=== PATIENT | female | born 1995 | race Caucasian/White ===

== ENCOUNTER 2021-07-21 10:21 | Emergency (ER) | payer OTHER ==
[2021-07-21] MEDS ORDERED: BACITRACIN ZINC OINT 1 PACKET TOP STA (11:29)
--- NOTE | 2021-07-21 11:31 | ED Physician Documentation ---
History of Present Illness - Stated complaint Stated Complaint: HEAD INJ - Chief complaint Chief Complaint: Laceration - Additonal information Additional information: 25-year-old active [employer] female comes into the emergency department for a 2 cm superficial laceration on the top of her head/scalp after abutting a airplane door. No anticoagulation. Did not lose consciousness. Denies headache nausea or vomiting. No vision changes. Tetanus is up-to-date. Review of Systems Constitutional: reports: Reviewed and negative Ears: reports: Reviewed and negative Throat: reports: Reviewed and negative Cardiac: reports: Reviewed and negative Respiratory: reports: Reviewed and negative Skin: reports: Laceration (s) Musculoskeletal: reports: Reviewed and negative Neurologic: reports: Reviewed and negative PD PAST MEDICAL HISTORY - Present Medications Home Medications: Ambulatory Orders Medication Instructions Recorded Confirmed No Known Home Medications 07/21/21 07/21/21 - Allergies Allergies/Adverse Reactions: Allergies Allergy/AdvReac Type Severity Reaction Status Date / Time No Known Drug Allergies Allergy Verified 07/21/21 10:33 PD ED PE NORMAL - General General: Alert and oriented X 3 - HEENT HEENT: Ears normal, Moist mucous membranes, Pharynx benign. No: Atraumatic (2 cm superficial laceration on Scalp topof head) - Neck Neck: Supple, no meningeal sign, No bony TTP, C-Spine cleared by NEXUS criteria - Cardiac Cardiac: RRR, No murmur - Respiratory Respiratory: Clear bilaterally - Derm Derm: Other (2 cm superficial scalp laceration top of scalp right side. Minimal bleeding. Not amenable to primary closure given superficial nature) - Neuro Neuro: Alert and oriented X 3, loom cleaner 2-12 intact Eye Opening: Spontaneous Motor: Obeys Commands Verbal: Oriented GCS Score: 15 - Psych Psych: Normal mood Results - Vitals Vitals: Vital Signs - 24 hr 07/21/21 10:30 Temperature 36.4 C L Heart Rate 96 Respiratory 16 Rate Blood Pressure 134/73 H O2 Saturation 99 Oxygen O2 Source Room air PD MEDICAL DECISION MAKING - ED course Complexity details: considered differential, d/w patient ED course: Well-appearing 25-year-old female presents emergency department for evaluation of a scalp laceration sustained when her head hit an airplane door while at work with the [employer]. No loss of consciousness. No anticoagulation. This is a supe rficial laceration that would not benefit from primary closure. Discussed routine wound care with antibiotic ointment. Otherwise emergent return precautions discussed. Departure - Departure Disposition: 01 Home, Self Care Clinical Impression: Laceration of head Qualifiers: Encounter type: initial encounter Location of open wound of head: scalp Foreign body presence: without foreign body Qualified Code(s): S01.01XA - Laceration without foreign body of scalp, initial encounter Comments: Whit, the laceration on you your head is not deep enough to require primary closure with alyssa or sutures. I expect this to heal well over the next 5 to 10 days. In general apply a thin layer of antibiotic ointment to it. You can shower normally starting tomorrow. If at any point you have concerns of infection, increased pain fevers redness or milky drainage then please return immediately to the ER for second evaluation.
[2021-07-21 11:45] VITALS: BP 128/67
== END 2021-07-21 11:45 | disposition home or self-care (01) ==
LOC: ED 10:21
DX: S01.01XA Laceration without foreign body of scalp, initial encounter (principal); W22.8XXA Striking against or struck by other objects, initial encounter; Y99.1 Military activity
CPT/HCPCS: 99282